=== PATIENT | female | born 1975 | race Caucasian/White ===

== ENCOUNTER 2019-12-20 11:42 | Outpatient (REF) | payer BC, SELFPAY | END 2019-12-20 11:43 | disposition home or self-care (01) | LOC: HO.LAB 11:42 | PROVIDERS: PCP Family Medicine; Visit Provider Internal Medicine | DX: Z20.828 Contact with and (suspected) exposure to other viral communicable diseases (principal) | CPT/HCPCS: 36415; 87635 ==

== ENCOUNTER 2022-07-24 19:09 | Emergency (ER) | payer OTHER, SELFPAY ==
[2022-07-24 19:21] VITALS: BP 142/78; PULSE 87; RESP 16; TEMP 36.4; O2SAT 100; BMI 26.7
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
--- NOTE | 2022-07-24 22:05 | PC.NURSE ---
pt resting quietly with significant other at bedside. C-collar in place, awating ED provider
--- NOTE | 2022-07-24 22:14 | PC.NURSE ---
c- collar removed by MD. Murray
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
[2022-07-24] MEDS: Lidocaine 4 % Patch ADH..PATCH 1 PATCH TRANSDERMA (22:55)
[2022-07-24] MEDS: Ketorolac Tromethamine 15 MG/ML VIAL IM (22:57)
[2022-07-24] MEDS: Cyclobenzaprine HCl 10 MG TABLET PO (22:59)
[2022-07-24] MEDS: Acetaminophen 325 MG TABLET 975 MG PO (23:00)
--- NOTE | 2022-07-24 23:03 | PC.NURSE ---
pt medicated per on discharge
== END 2022-07-24 23:06 | disposition home or self-care (01) ==
PROVIDERS: Emergency Provider Student in an Organized Health Care Education/Training Program
DX: M54.2 Cervicalgia (principal); S50.12XA Contusion of left forearm, initial encounter; S00.81XA Abrasion of other part of head, initial encounter; V43.52XA Car driver injured in collision with other type car in traffic accident, initial encounter; Y93.89 Activity, other specified; Y92.414 Local residential or business street as the place of occurrence of the external cause; Y99.9 Unspecified external cause status
CPT/HCPCS: 96372; 99283; 99284; J1885